=== PATIENT | male | born 1970 | race Caucasian/White ===

== ENCOUNTER 2017-09-03 06:16 | Day surgery (SDC) | payer OTHER ==
[2017-09-02 09:02] VITALS: BMI 38.2
[2017-09-03] MEDS ORDERED: BUPIVACAINE HCL/PF 0.5% (5MG/ML) 10 ML VIAL ONE (07:24)
[2017-09-03] MEDS ORDERED: MIDAZOLAM HCL 2 MG/2 ML SINGLE DOSE VIAL ONE ×2 (07:55→08:34)
[2017-09-03] MEDS ORDERED: BUPIVACAINE 0.75% IN DEXTROSE/PF 2ML AMPULE NR ONE (08:16)
[2017-09-03] MEDS ORDERED: CLINDAMYCIN PHOSPHATE 600 MG/4 ML VIAL ONE (08:35)
--- NOTE | 2017-09-03 09:20 | HP ---
Satellite [facility] - Chief Complaint Chief Complaint: right knee pain - Past Medical History Allergies/Adverse Reactions: Allergies Allergy/AdvReac Type Severity Reaction Status Date / Time Penicillins Allergy Unknown Verified 09/02/17 08:54 - Current Medications Current Medications: Home Medications Medication Instructions Recorded Atorvastatin Ca [Lipitor] 20 mg PO HS 09/02/17 Metoprolol Succinate [Toprol Xl] 50 mg PO HS 09/02/17 Hydrocodone/Acetaminophen [Caret 1 each PO Q6H PRN #20 tablet MDD 4 09/03/17 5-325 Tablet] Satellite Physical Exam - Physical Examination Vital Signs: Vital Signs Period Temp Pulse Resp BP Sys/Rios Pulse Ox Last 24 Hr 97.4 F 55 20 129/95 95 General Appearance: Well Nourished, Well Developed, Alert & Oriented x3 ENT: Clear Lung: Normal air movement Heart: Regular rate & rhythm Extremities: Other (right knee- + swelling, + ttp, decr rom, + mcmurrays, nvi MRI + mt) Neurological: Intact, Alert, Oriented Satellite Impression/Plan - Impression/Plan Impression: right knee internal derangement Operative Procedure: right knee arthroscopy Date to be Performed: 09/03/17
[2017-09-03] MEDS ORDERED: ONDANSETRON 4 MG/2 ML VIAL IVPUSH PRN (09:26)
[2017-09-03] MEDS ORDERED: oxyCODONE HCL 5 MG TABLET PO PRN (09:26)
--- NOTE | 2017-09-03 09:29 | OP ---
Operative Note - Note: Operative Date: 09/03/17 Pre-Operative Diagnosis: right knee pain, MM tear, OA Operation: right knee arthroscopy, partial medial meniscectomy, debridement chondroplasty, partial synovectomy Post-Operative Diagnosis: Same as Pre-op Surgeon: Samuel Matthews Anesthesiologist/LOAN TELLER: Pavel Reyes Anesthesia: General, Local Specimens Removed: shavings Estimated Blood Loss (mls): 0 Drains, Volume Out (mls): 0 Blood Volume Replaced (mls): 0 Fluid Volume Replaced (mls): 500 Operative Report Dictated: Yes
[2017-09-03] MEDS ORDERED: LACTATED RINGERS SOLUTION 1,000 ML IV SCH (09:30)
--- NOTE | 2017-09-03 10:18 | OP ---
DATE OF OPERATION: 09/03/2017 PREOPERATIVE DIAGNOSIS: Right knee pain, medial meniscus tear, and osteoarthritis. POSTOPERATIVE DIAGNOSIS: Right knee pain, medial meniscus tear, and osteoarthritis, plus synovitis. PROCEDURE: Right knee arthroscopy, partial medial meniscectomy, debridement chondroplasty, and partial arthroscopic synovectomy. SURGEON: Samuel Matthews MD ICE CREAM DIPPER: None. ANESTHESIOLOGIST: Franko Reyes MD, spinal anesthesia with local injection of 20 mL 0.5% Marcaine, and sedation. DRAINS: None. COMPLICATIONS: None. SPECIMENS: Arthroscopic shavings. BLOOD LOSS: None. BLOOD GIVEN: None. FLUID REPLACEMENT: 500 mL. INDICATIONS: This patient is a 47-year-old male with a preoperative diagnosis of right knee pain, medial meniscus tear, and osteoarthritis. After understanding the potential risks, complications, alternatives, benefits of surgery versus nonsurgical treatment, the patient elected to undergo this procedure. Patient understands that he may not have complete relief of his symptoms or his pain because of the osteoarthritis. Patient brought to the operating room. Peripheral IV placed, IV sedation given. Clindamycin 600 mg was given. Ample Webril was placed around the right thigh and the tourniquet was applied. Right lower extremity was placed into C-clamp leg de leon with ample padding throughout, including the styrofoam ring. He was prepped and draped in sterile fashion, elevated, exsanguinated with an Esmarch bandage and tourniquet inflated to 300 mmHg. The superomedial outflow portal was established. Lateral portal was established. Diagnostic arthroscopy was performed. The patient was seen to have significant complex tear of the body and posterior horn of the medial meniscus as well as grade 3 chondromalacia of the medial femoral condyle and grade 2 changes of the medial tibial plateau. There were a lot of loose bodies of cartilage floating around in the medial compartment, and there were some loose flaps on the medial femoral condyle. A gentle debridement chondroplasty was performed. All these cartilaginous pieces were removed, and a partial medial meniscectomy was performed. Photographs were taken before and after. Once this was completed, we turned our attention to the intercondylar notch. The ACL looked good. The lateral compartment was directly visualized. It was washed out but otherwise looked good, with no arthritis and no lateral meniscus tear. 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 This area was debrided on both sides as well. The patient had a lot of synovitis around the entire knee joint including in the suprapatellar pouch, the patellofemoral joint, the medial and lateral compartments. This was debrided with a shaver. The area was copiously irrigated and washed out, all excess saline removed. The arthroscopy portals were closed with 3-0 nylon sutures, 20 mL 0.5% Marcaine introduced into the joint. The area was then washed and dried, covered with Xeroform, 4 x 4's, Webril, and Carlos bandage. The tourniquet was taken down after total tourniquet time of about 25 minutes. There were no complications during the case, and patient tolerated the procedure quite well and was brought to the ambulatory recovery room in stable condition. Aida [id number] MTDD
[2017-09-03 11:59] VITALS: BP 129/76; PULSE 71; TEMP 98
[2017-09-03] MEDS ORDERED: oxyCODONE HCL 5 MG TABLET PO ONE ×2 (12:19→13:28)
[2017-09-03] MEDS ORDERED: oxyCODONE HCL 5 MG TABLET ONE ×2 (12:23→13:30)
--- NOTE | 2017-09-04 16:16 | PATH ---
Surgical Pathology Report Patient Name: JORGE A RHODES Med. Rec. #: [id number] /Age/Gender: 1970 (Age: 47) / M Account: [id number] Location: [facility] SURGICAL Taken: 09/03/2017 Received: 09/03/2017 Reported: 09/04/2017 Physicians: Samuel Matthews M.D. Specimen(s) Received RIGHT KNEE SHAVINGS Clinical History Internal derangement right knee Final Diagnosis KNEE SHAVINGS, RIGHT, ARTHROSCOPY, DEBRIDEMENT CHONDROPLASTY AND PARTIAL SYNOVECTOMY: FRAGMENTS OF CARTILAGE, DENSE FIBROCONNECTIVE TISSUE, ADIPOSE TISSUE, AND SYNOVIUM. Electronically Signed Nneka Rao M.D. Gross Description Received in formalin, labeled "right knee shavings," is a 5.5 x 4.8 x 0.5 cm. aggregate of olvera-yellow soft tissue fragments. A apparel trimmings sales representative portion is submitted in one cassette. /09/03/201709/03/2017
== END 2017-09-03 15:35 | disposition home or self-care (01) ==
LOC: JASU-SURG 06:16
PROVIDERS: ATTEND Orthopaedic Surgery
PROC: 0SBC4ZZ Excision of Right Knee Joint, Percutaneous Endoscopic Approach (ICD-10-PCS; 2017-09-03)
PROC: 0SBC4ZZ Excision of Right Knee Joint, Percutaneous Endoscopic Approach (ICD-10-PCS; principal; 2017-09-03 08:48)
DX: M23.221 Derangement of posterior horn of medial meniscus due to old tear or injury, right knee (principal); M22.41 Chondromalacia patellae, right knee; M17.11 Unilateral primary osteoarthritis, right knee; M65.9 Synovitis and tenosynovitis, unspecified
CPT/HCPCS: 88304-TC; 94760

== ENCOUNTER 2022-03-26 05:13 | Emergency (ER) | payer OTHER ==
[2022-03-26] MEDS ORDERED: KETOROLAC TROMETHAMINE 30 MG/1 ML VIAL IVPUSH ONE (05:18)
[2022-03-26] MEDS ORDERED: SODIUM CHLORIDE 1,000 ML IV STA (05:18)
[2022-03-26] MEDS ORDERED: KETOROLAC TROMETHAMINE 30 MG/1 ML VIAL ONE (05:23)
[2022-03-26] MEDS ORDERED: ONDANSETRON 4 MG/2 ML VIAL IVPUSH ONE (05:25)
[2022-03-26] MEDS ORDERED: ONDANSETRON 4 MG/2 ML VIAL ONE (05:25)
[2022-03-26 05:36] VITALS: PULSE 50; RESP 18; TEMP 97.9; BMI 34.9
[2022-03-26 05:52] VITALS: BP 138/79
== END 2022-03-26 06:26 | disposition home or self-care (01) ==
LOC: FER 05:13
PROC: 3E0333Z Introduction of Anti-inflammatory into Peripheral Vein, Percutaneous Approach (ICD-10-PCS; principal; 2022-03-26)
PROC: 3E033GC Introduction of Other Therapeutic Substance into Peripheral Vein, Percutaneous Approach (ICD-10-PCS; 2022-03-26)
PROC: 3E0337Z Introduction of Electrolytic and Water Balance Substance into Peripheral Vein, Percutaneous Approach (ICD-10-PCS; 2022-03-26)
DX: N23 Unspecified renal colic (principal)
CPT/HCPCS: 74176-TC; 99284-25